=== PATIENT | male | born 1965 | race Caucasian/White ===

== ENCOUNTER 2021-01-08 09:50 | Day surgery (SDC) | payer MEDICARE, OTHER ==
[~2021-01-08] VITALS: Ht 182.9 cm; Wt 93.0 kg
[~2021-01-08 09:50] MED LIST: ELIQUIS5 MG PO
[2021-01-08] MEDS ORDERED: HYDROCODON-ACE1 EA11 PO (12:07)
--- NOTE | 2021-01-08 12:10 | NUR ---
01/08/21 1210 Story,Haily 1208 PT. COUGHING, TALKTAIVE WITH STAFF, DENIES COMPLAINTS OF.
--- NOTE | 2021-01-12 06:57 | OR ---
[facility] [address], [place] [address] Signed DATE OF OPERATION: 01/08/2021 SURGEON: Jason Vergara MD PREOPERATIVE DIAGNOSIS: Arthrofibrosis, right small finger. POSTOPERATIVE DIAGNOSIS: Arthrofibrosis, right small finger. PROCEDURE PERFORMED: Amputation, right small finger. ASSISTANT VICE PRESIDENT: None. ANESTHESIA: MAC with block. TOURNIQUET TIME: 21 minutes. BRIEF HISTORY: Nii is a 55-year-old gentleman, who has had multiple injuries to his small finger. 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 He had no active motion and they were in the way. They were getting injured and were painful. He wished to proceed with amputation above the PIP joint. Risks and benefits of this were discussed with him at length and after several consultations, he elected to proceed. DESCRIPTION OF PROCEDURE: Once consent was obtained, he was taken to the operating room. After adequate anesthesia, he was placed on operating table, all downside pressure points were well padded. A well-padded proximal arm tourniquet was placed and the arm was prepped and draped in a standard sterile fashion. The arm was exsanguinated using Esmarch bandage. Tourniquet inflated to 200 mmHg. The plan was to amputate mid P1 and the incision was marked out. This was carefully incised, carried through skin and subcutaneous tissue. The bleeders were cauterized as we went. The tendons, both extensor and flexor were cut and the soft tissue was stripped in the region of the supracondylar flares of the P1. We initially cut a little bit too long and had to cut it back about 5 mm. We then were able to get a good soft tissue coverage with a flap. This still left most of P1 intact. Electronically Signed By: JASON VERGARA MD 01/12/21 0657 PATIENT NAME: NII LEON OPERATIVE REPORT DATE OF : 67 REPORT #: [id number] PHYSICIAN: JASON VERGARA MD PCP: NO PRIMARY CARE PHYSICIAN REPORT IS CONFIDENTIAL AND NOT TO BE RELEASED WITHOUT AUTHORIZATION [facility] [address], [place] [address] Signed We irrigated the wound and closed the soft tissue envelope with 3-0 Monocryl deep and 3-0 nylon for the skin. Wound was dressed with Xeroform, sterile tube gauze with 4 x 4 over the top. He tolerated this well, was taken to recovery room in satisfactory condition. All sponge, needle, and instrument counts were correct. Jason Vergara MD BA/GERARDOL /[id number] Copies: ~ Electronically Signed By: JASON VERGARA MD 01/12/21 0657 PATIENT NAME: NII ELON OPERATIVE REPORT DATE OF : 67 REPORT #: [id number] PHYSICIAN: JASON VERGARA MD PCP: NO PRIMARY CARE PHYSICIAN REPORT IS CONFIDENTIAL AND NOT TO BE RELEASED WITHOUT AUTHORIZATION
== END 2021-01-08 12:55 | disposition home or self-care (01) ==
LOC: DS 09:50
PROVIDERS: ATTEND Specialist
PROC: 0X6V0Z1 Detachment at Right Little Finger, High, Open Approach (ICD-10-PCS; principal; 2021-01-08 13:00)
DX: M24.641 Ankylosis, right hand (principal); T14.90XS Injury, unspecified, sequela; G89.18 Other acute postprocedural pain; Z87.891 Personal history of nicotine dependence
CPT/HCPCS: 01830; 64417; 76942; J0690; J1100; J2704; J7121